=== PATIENT | male | born 1960 | race Caucasian/White ===

== ENCOUNTER → 2022-03-17 10:29 | Outpatient (CLI) | payer BC, SELFPAY ==
--- NOTE | ~2022-03-17 | XR_ITS ---
EXAMINATION: XR chest 2V Exam Date/Time: 03/17/2022 10:32 CDT HISTORY: R05.8 - Other specified cough Comparison: None available. RESULT: Lines, tubes, and devices: None. Lungs and pleura: Clear. Cardiomediastinal silhouette: Unremarkable. Other: No acute osseous or upper abdominal finding. IMPRESSION: No acute cardiopulmonary process. Reviewed, dictated and finalized at location K.
== END ==
PROVIDERS: PCP Family Medicine; Visit Provider Family Medicine
DX: R05.8 Other specified cough (principal)
CPT/HCPCS: 71046

== ENCOUNTER 2022-05-07 09:00 | Outpatient (NON) | payer BC, SELFPAY | END 2022-05-07 09:01 | disposition home or self-care (01) | LOC: ANHLAB 05-09 12:51 | PROVIDERS: PCP Family Medicine; Visit Provider Nurse Practitioner | DX: L82.1 Other seborrheic keratosis (principal) | CPT/HCPCS: 88305 ==

== ENCOUNTER → 2022-06-01 08:09 | Outpatient (CLI) | payer BC, SELFPAY ==
--- NOTE | ~2022-06-01 | CT_ITS ---
EXAMINATION: CT sinus wo con DATE: 06/01/2022 08:22 INDICATION: Sinusitis TECHNIQUE: Computed tomography (CT) of the paranasal sinuses was performed without intravenous contra st. The dose-length product was 295.05 mGy-cm. Automated exposure control and iterative reconstructio n technique were employed. COMPARISON: CT dated 06/01/2022 FINDINGS: There is minimal mucosal thickening of the maxillary sinuses inferiorly. There is rightward nasal septal deviation. Ostiomeatal units are patent.Mastoids are pneumatized. There is intracranial atherosclerosis. No midline shift. IMPRESSION: 1. Mild maxillary sinus disease. Reviewed, dictated and finalized at location A.
== END ==
PROVIDERS: PCP Family Medicine; Visit Provider Nurse Practitioner Family
DX: J32.0 Chronic maxillary sinusitis (principal)
CPT/HCPCS: 70486

== ENCOUNTER 2022-10-01 14:30 | Outpatient (CLI) | payer BC, SELFPAY ==
--- NOTE | 2022-10-01 14:43 | ECG_ITS ---
Measurements Intervals [place] Rate: 66 P: 49 WV: 160 QRS: 60 QRSD: 98 T: 40 QT: 398 QTc: 418 Interpretive Statements SINUS RHYTHM NO PREVIOUS ECG AVAILABLE FOR COMPARISON Electronically Signed On 10-02-2022 11:24:27 PROFESSOR OF BUSINESS by More Carcamo M.D.
== END 2022-10-01 14:31 | disposition home or self-care (01) ==
LOC: ANHCARD 14:33
PROVIDERS: PCP Family Medicine; Visit Provider Otolaryngology
DX: E78.2 Mixed hyperlipidemia (principal)
CPT/HCPCS: 93005

== ENCOUNTER 2022-10-09 00:35 | Day surgery (SDC) | payer BC, SELFPAY ==
[2022-09-25 09:21] VITALS: BMI 31.0
--- NOTE | 2022-09-25 09:48 | PC.NURSE ---
Report to the Outpatient Waiting Room, entrance under the green pavilion located off [facility], at time 0630 on date _10/09/22 Planned Procedure Time: 0830. Time changes happen often and if your time is changed the preop area will call you the afternoon before. - You and your visitor will be asked to self-screen and do not enter if you have any COVID symptoms. - Only one visitor is requested with a max of two and NO children visitors are allowed at this time. - The patient visitor may be requested to leave or wait in car when not with patient due to distancing restrictions. - A mask is optional within the hospital at this time. Patients may have clear liquids (water, carbonated beverages, clear teas, apple juice) until 3 hours prior to surgery with a maximum of 20 ounces. - No food from midnight until time of surgery - Infants may have breast milk until 4 hours before surgery, formula 6 hours prior to surgery. - Children will be allowed to drink immediately following surgery. If applicable, please bring a bottle or sippy cup to assist with drinking. Juice, water, soda, and popsicles are readily available. For infants on formula, please bring formula the day of surgery. Pacifiers are allowed. Take the following medications with a SIP of water the morning of surgery: allegra_ DO NOT STOP ANY OF YOUR OTHER PRESCRIPTION MEDICATIONS PRIOR TO SURGERY ?EXCEPT THE FOLLOWING Medications to discontinue per physician _multivitamin Date to take last dose_10/06/22__ Please no make-up, nail sri lankan, hairspray, perfume, deodorant, or body powder the day of surgery. No jewelry (including any body piercings) or valuables the day of surgery, leave them at home. Please take a shower or bath the night before, or the morning of, surgery with an antibacterial soap. Wear comfortable, loose fitting clothing. Children are encouraged to wear pajamas. - Jewelry must be removed prior to entering the operating room. Rings and piercings that are not removed may be cut off. - The hospital will not accept responsibility for valuables. - Please leave all valuables, including medications, at home the day of surgery. If you are going home after surgery, a licensed driver license reviewing officer must drive you home. - NO public transportation without another adult if you receive anesthesia. - We recommend that an adult stay with you for 24 hours following discharge. - We also recommend that you do not drive, make important decision, drink alcoholic beverages, or take any drugs that were not prescribed by your health care provider for at least 24 hours after your discharge time. For Pediatric surgeries, we recommend two adults accompany the child home. Follow any additional instructions given to you from your surgeon. If you or anyone in your household have experienced Covid symptoms in the past week, please notify your surgeon or the nurse liaison at the phone number below for possible testing. Telephone instructions given to Anika Lane and asked if any additional questions and then verbalized understanding. Patient advised to call surgeon office or pre surgery nurse liaison [phone] if any additional questions.
--- NOTE | 2022-10-08 17:46 | PM.IMHP ---
H&P: HPI History of Present Illness Date/Time: 10/08/22 17:46 Chief Complaint: nasal congestion nasal obstruction chronic sinusitis facial pressure postnasal drainage septal deviation turbinate hypertrophy Narrative: planned surgical procedure Review of Systems Review of Systems: All systems reviewed & are unremarkable except as noted in HPI and below PMFSH Past Medical History Medical History BMI 31.0-31.9,adult BMI 32.0-32.9,adult Closed displaced fracture of distal phalanx of left index finger Cough productive of clear sputum Deafness in right ear Dietary counseling and surveillance (05/28/19) Encounter for screening for malignant neoplasm of colon Encounter for screening for malignant neoplasm of prostate High cholesterol Mixed hyperlipidemia Screen for colon cancer Screening for prostate cancer Skin tag Unspecified open wound of left index finger with damage to nail, initial encounter Surgical History Surgical History History of removal of cyst back and forehead Family History Family History Father Family history of cardiovascular disease Mother No problems noted. Sibling No problems noted. Social History Social History Smoking status: Never smoker Second hand tobacco smoke exposure: Yes Alcohol intake: never Substance use: never Substance use type: does not use Lack of Transportation: No Lack of Food: Never True Current Housing: I Have Housing Concerned About Future Housing: No Difficulty Paying Gas/Electric Bills: No Difficulty Paying for Meds: No Currently Unemployed: No Education: Bachelor's Degree Difficulty w/ Childcare or Family Care: No Living arrangements: with family Occupation/Education: occupation Additional occupation/education comments: IT Gender identity (if verbalized by the patient): Male Spiritual care concerns: No Meds Home Medications and Allergies Home Medications Medication Instructions Recorded Confirmed Type fexofenadine 60 mg-pseudoephedrine 1 tablet PO Q12H PRN Allergy 03/16/22 09/25/22 History ER 120 mg tablet,ext.release,12 hr Symptoms (Lucy-D 12 Hour) pravastatin 40 mg tablet See Rx Instructions .Route 03/26/22 09/25/22 Rx .COMPLEX #90 tabs ipratropium bromide 21 mcg (0.03 2 spray intranasal TID #30 mL 08/15/22 09/25/22 Rx %) nasal spray Allergies Allergy/AdvReac Type Severity Reaction Status Date / Time latex Allergy Unknown Rash Verified 08/15/22 09:14 Exam Narrative: boggy mucosa septal deviation turbinate hypertrophy Assessment and Plan Assessment and plan (1) Nasal obstruction: Code(s): J34.89 - Other specified disorders of nose and nasal sinuses Status: Acute Assessment and Plan: ?Plan OR endoscopic assisted septoplasty inferior turbinate submucosal reduction with outfracture image guided endoscopic maxillary antrostomies anterior ethmoidectomies. Risks were discussed including bleeding infection damage to surrounding structures damage to any structure above the clavicle by myself damage to any structure during the induction and maintenance of anesthesia septal perforation. The biggest risk I discussed that there is a significant risk of not resolving the drainage. The patient's drainage is his biggest problem his sinuses are sinuses are mildly diseased. Patient voiced understanding and agreed. (2) Hypertrophy of both inferior nasal turbinates: Code(s): J34.3 - Hypertrophy of nasal turbinates Status: Acute (3) Nasal septal deviation: Code(s): J34.2 - Deviated nasal septum Status: Acute (4) PND (post-nasal drip): Code(s): R09.82 - Postnasal drip Status: Acu
[2022-10-09] VITALS (8 sets, daily range): BP systolic 117–130; BP diastolic 49–64; PULSE 61–81; RESP 12–20; TEMP 36–36.1; O2SAT 100; BMI 30.2
--- NOTE | 2022-10-09 07:17 | WPDHPUPDATE1 ---
History and Physical Update Update Date/Time: 10/09/22 07:17 History and Physical has been reviewed, including an updated exam of the patient. There are NO changes in the patient's condition. Risks, benefits, and alternatives have been discussed and questions answered. Patient agrees to proceed with procedure.
[2022-10-09] MEDS: LACTATED RINGERS 1,000 ML 30 ML IV CONT ×3 (07:45→11:09)
[2022-10-09] MEDS: ACETAMINOPHEN 500 MG TABLET 1000 MG PO (07:51)
--- NOTE | 2022-10-09 08:16 | WPDANESEPPF ---
Anes - Initial Pre Proc Eval Procedure: Operation Date: 10/09/22 09:15 Proposed Procedures p Image Guided Bilateral Inferior Turbinectomy with Outfracture, Bilateral Anterior Ethmoidectomy, Bilateral Maxillary Antrostomy without Tissue Removal - Nathan Britton MD s Endoscopic Septoplasty - Nathan Britton MD Date/Time: 10/09/22 08:16 Surgeon: Nathan Britton MD Pre Op Diagnosis: Chronic Sinusitis Patient Data Age: 62 Gender: M Height: 1.8 m Weight: 98.2 kg Last Vital Signs Temp 36.0 C L 10/09/22 07:20 Pulse 61 10/09/22 07:20 Resp 18 10/09/22 07:20 BP 117/64 10/09/22 07:20 Pulse Ox 100 10/09/22 07:20 O2 Del Method Room Air 10/09/22 07:20 Allergies Allergy/AdvReac Type Severity Reaction Status Date / Time latex Allergy Mild Rash Verified 10/09/22 07:36 Home Medications Medication Instructions Recorded Confirmed Type fexofenadine 60 mg-pseudoephedrine 1 tablet PO Q12H PRN Allergy 03/16/22 10/09/22 History ER 120 mg tablet,ext.release,12 hr Symptoms (Lucy-D 12 Hour) pravastatin 40 mg tablet See Rx Instructions .Route 03/26/22 09/25/22 Rx .COMPLEX #90 tabs ipratropium bromide 21 mcg (0.03 2 spray intranasal TID #30 mL 08/15/22 09/25/22 Rx %) nasal spray Patient hx anesthesia problems: none Family hx anesthesia problems: none Results Review: All pre-operative results and documents have been reviewed as part of the pre-operative evaluation. [facility] Past Medical History Medical History BMI 31.0-31.9,adult BMI 32.0-32.9,adult Closed displaced fracture of distal phalanx of left index finger Cough productive of clear sputum Deafness in right ear Dietary counseling and surveillance (05/28/19) Encounter for screening for malignant neoplasm of colon Encounter for screening for malignant neoplasm of prostate High cholesterol Mixed hyperlipidemia Screen for colon cancer Screening for prostate cancer Skin tag Unspecified open wound of left index finger with damage to nail, initial encounter Surgical History Surgical History History of removal of cyst back and forehead Family History Family History Father Family history of cardiovascular disease Mother No problems noted. Sibling No problems noted. Social History Social History Smoking status: Never smoker Second hand tobacco smoke exposure: Yes Alcohol intake: never Substance use: never Substance use type: does not use Lack of Transportation: No Lack of Food: Never True Current Housing: I Have Housing Concerned About Future Housing: No Difficulty Paying Gas/Electric Bills: No Difficulty Paying for Meds: No Currently Unemployed: No Education: Bachelor's Degree Difficulty w/ Childcare or Family Care: No Living arrangements: with family Occupation/Education: occupation Additional occupation/education comments: IT Gender identity (if verbalized by the patient): Male Spiritual care concerns: No Anes - Eval Final PreProcedure Day of Procedure 10/09/22 08:16 Patient weight: obese Heart: regular rate and rhythm Lungs: clear to auscultation Airway: Mallampati scale class II Neurological: alert and oriented Last oral intake: >/= 8 hours ASA classification: II Emergent: no Anesthetic plan: proceed Anesthesia type and monitoring: general ETT and standard monitoring Results Review: All pre-operative results and documents have been reviewed as part of the pre-operative evaluation. Informed Consent: The patient's anesthetic plan and its attendant risks and benefits were discussed with the patient/family/POA. Questions were solicited and answers provided to the satisfaction of the patient/family/POA.
[2022-10-09] MEDS: LIDO 2%/EPINEPHRINE 1:100,000 50 ML VIAL INFILTRATE (08:43)
[2022-10-09] MEDS: OXYMETAZOLINE HCL 0.05% NAS 15 ML BTL (*BKC) 1 SPRAY NASAL (08:44)
[2022-10-09] MEDS: ceFAZolin 2 GM/D5W 50 ML 2 GM/50 ML BAG IVPB (08:44)
--- NOTE | 2022-10-09 11:18 | W.PM.PROC2 ---
Procedure Note - Detailed Date of Procedure 10/09/22 Pre-op Diagnosis Chronic SinusitisNasal obstruction nasal congestion postnasal drainage septal deviation turbinate hypertrophy Post-op Diagnosis Same Procedure Performed endoscopic assisted septoplasty turbinate reduction inferior submucosally with outfracture bilateral image guided endoscopic maxillary antrostomies without tissue removal and anterior ethmoidectomies Surgeon Nathan Britton MD Anesthesia General Indications see above Findings severely deviated right septum corrected nicely no perforations on the left turbinate hypertrophy well reduced. The left anterior ethmoids had significant amount of diseased air cells. Left max mildly diseased the right-side had very mild edema disease. No complications blood loss 25-50 cc Description of Procedure patient identified consider a fight in preop. Patient brought to the operating room. Time-out performed. Image guidance initiated. General anesthesia induced endotracheal tube secured. Patient prepped draped positioned 2nd time-out performed. Image guidance confirmed it set up. Afrin-soaked pledgets placed allowed to sit for 5 minutes the bilateral nasal passages. They were then removed 0 degree endoscope utilized septum injected with 10 cc 1% 2% lidocaine 1 100,000 parts epinephrine bilateral sub mucosal plane. [place] incision made left-sided 15 blade left nasal septal flap elevated with 7 Macedonian suction. Osteotome utilized to cross over D blade as well as osteotome utilized to connect the cuts in the cartilaginous septum. Right nasal septal flap elevated with 7 Macedonian suction small tears. Deviated septum removed combination Emmanuel Church forceps osteotome Zina forceps. Septum then closed with 3 interrupted 5 0 fast gut sutures. Turbinates reduced submucosal plane after being injected with 1 cc each of the same injectable. Microdebrider with turbinate blade utilized were then outfractured with [place] elevator image guidance utilized after the middle turbinates were medialized to perform Astelin antrostomies as well as backbiter double ball tip probe straight through cut and microdebrider image guided. Image guidance was then utilized to confirm the location of the anterior ethmoid air cells. There opened with [place] and microdebrider as well straight through cut. Bleeding was minimal no violation of the anterior ethmoidal arteries. Bilateral nasal passages suction to the choana no pack placed a small amount stenting the middle turbinates medial. Doherty splints carbon fashion the appropriate fashion covered mupirocin placed bilaterally and sutured anteriorly using a 3-0 mattressed nylon suture. Blood loss 25-50 cc. I performed all dictated portions of the procedure. No complications. Patient taken to PACU. Estimated Blood Loss 25 Drains No Packing Yes (Jos) Pathology None sent Complications No immediate complications Condition Stable Disposition PACU [facility] Billing Surgery - Charge Forward: Surgery Billing
--- NOTE | 2022-10-09 11:52 | SUR.PHASEI ---
1140 PT STATES HE FEELS LIKE HE CAN'T SWALLOW, COUGHING OCCASIONALLY, PT WAS ABLE TO SWALLOW A DRINK OF WATER. 1145 DR ALBARRAN CONTACTED.
[2022-10-09] MEDS: IBUPROFEN 600 MG TABLET PO (13:27)
== END 2022-10-09 13:45 | disposition home or self-care (01) ==
PROVIDERS: PCP Family Medicine; Visit Provider Otolaryngology
PROC: (CPT 31254; principal; 2022-10-09 09:15)
PROC: (CPT 30520; 2022-10-09 09:15)
DX: J32.9 Chronic sinusitis, unspecified (principal); J34.3 Hypertrophy of nasal turbinates; R09.82 Postnasal drip; J34.2 Deviated nasal septum; J34.89 Other specified disorders of nose and nasal sinuses; E78.00 Pure hypercholesterolemia, unspecified; E66.9 Obesity, unspecified; Z68.30 Body mass index [BMI] 30.0-30.9, adult
CPT/HCPCS: 31254; 31267; 30140; 30520; 61782; A9270; J0330; J0690; J1100; J2250; J2405; J2704; J3010; J7120

== ENCOUNTER 2023-05-27 07:00 | Outpatient (NON) | payer BC, SELFPAY | END 2023-05-27 07:01 | disposition home or self-care (01) | LOC: ANHLAB 05-29 13:22 | PROVIDERS: PCP Family Medicine; Visit Provider Nurse Practitioner | DX: D48.5 Neoplasm of uncertain behavior of skin (principal); D36.12 Benign neoplasm of peripheral nerves and autonomic nervous system, upper limb, including shoulder; D18.03 Hemangioma of intra-abdominal structures | CPT/HCPCS: 88305 ==

== ENCOUNTER 2023-08-13 09:34 | Outpatient (CLI) | payer BC, SELFPAY ==
--- NOTE | ~2023-08-13 | XR_ITS ---
EXAMINATION: XR chest 2V 08/13/2023 09:57 INDICATION: Cough and wheezing. Congestion. PROCEDURE: 2 view chest COMPARISON: 03/17/2022 FINDINGS: The lungs are clear. The cardiomediastinal silhouette is within normal limits. There are no pleural effusions. There is no pneumothorax suspected. IMPRESSION: 1: NO ACUTE CARDIOPULMONARY DISEASE. Reviewed, dictated and finalized at location L. SCORER
== END 2023-08-13 09:35 | disposition home or self-care (01) ==
PROVIDERS: PCP Family Medicine; Visit Provider Physician Assistant
DX: R06.2 Wheezing (principal); R05.9 Cough, unspecified
CPT/HCPCS: 71046

== ENCOUNTER 2023-09-16 00:55 | Day surgery (SDC) | payer BC, SELFPAY ==
[2023-08-26 12:31] VITALS: BMI 30.7
--- NOTE | 2023-09-13 10:15 | SUR.PREOP ---
Patient called regarding upcoming procedure. Pt updated on arrival date and time. All questions answered
[2023-09-16 10:25] VITALS: BP 130/66; PULSE 79; RESP 19; TEMP 36.5; O2SAT 99; BMI 30.4
[2023-09-16] MEDS: LACTATED RINGERS 1,000 ML 150 ML IV CONT (10:41)
--- NOTE | 2023-09-16 10:51 | WPDANESEPPF ---
Anes - Initial Pre Proc Eval Procedure: Operation Date: 09/16/23 12:30 Proposed Procedures p Screening Colonoscopy - Jordi Maldonado MD Date/Time: 09/16/23 10:51 Surgeon: Jordi Maldonado MD Pre Op Diagnosis: neoplasm screening Patient Data Age: 63 Gender: M Height: 1.8 m Weight: 99.2 kg Last Vital Signs Temp 97.7 F 09/16/23 10:25 Pulse 79 09/16/23 10:25 Resp 19 09/16/23 10:25 BP 130/66 09/16/23 10:25 Pulse Ox 99 09/16/23 10:25 O2 Del Method Room Air 09/16/23 10:25 Allergies Allergy/AdvReac Type Severity Reaction Status Date / Time latex Allergy Mild Rash Verified 09/16/23 10:30 Home Medications Medication Instructions Recorded Confirmed Type fexofenadine 60 mg-pseudoephedrine 1 tablet PO Q12H PRN Allergy 06/18/23 09/16/23 History ER 120 mg tablet,ext.release,12 hr Symptoms (Lucy-D 12 Hour) rosuvastatin 20 mg tablet 20 mg PO DAILY #90 tabs 08/06/23 09/16/23 Rx Patient hx anesthesia problems: none Family hx anesthesia problems: none Results Review: All pre-operative results and documents have been reviewed as part of the pre-operative evaluation. [facility] Past Medical History Medical History BMI 31.0-31.9,adult BMI 32.0-32.9,adult Closed displaced fracture of distal phalanx of left index finger Cough productive of clear sputum Deafness in right ear Dietary counseling and surveillance (05/28/19) Encounter for screening for malignant neoplasm of colon Encounter for screening for malignant neoplasm of prostate High cholesterol Mixed hyperlipidemia Screen for colon cancer Screening for prostate cancer Skin tag Unspecified open wound of left index finger with damage to nail, initial encounter Surgical History Surgical History H/O sinus surgery History of removal of cyst back and forehead Family History Family History Father Family history of cardiovascular disease Tobacco abuse Sibling No problems noted. Mother Skin cancer Tobacco abuse Social History Social History Smoking status: Never smoker Second hand tobacco smoke exposure: Yes Alcohol intake: never Alcohol use details: Rarely Substance use: never Substance use type: does not use Lack of Transportation: No Lack of Food: Never True Current Housing: I Have Housing Concerned About Future Housing: No Difficulty Paying Gas/Electric Bills: No Difficulty Paying for Meds: No Currently Unemployed: No Education: Bachelor's Degree Difficulty w/ Childcare or Family Care: No Living arrangements: other Additional living arrangements comments: with sp Occupation/Education: occupation Additional occupation/education comments: IT Gender identity (if verbalized by the patient): Male Spiritual care concerns: No Anes - Eval Final PreProcedure Day of Procedure 09/16/23 10:51 Patient weight: obese Heart: regular rate and rhythm Lungs: clear to auscultation Airway: Mallampati scale class II Neurological: alert and oriented Last oral intake: >/= 8 hours ASA classification: II Emergent: no Anesthetic plan: proceed Anesthesia type and monitoring: general GIVS and standard monitoring Results Review: All pre-operative results and documents have been reviewed as part of the pre-operative evaluation. Informed Consent: The patient's anesthetic plan and its attendant risks and benefits were discussed with the patient/family/POA. Questions were solicited and answers provided to the satisfaction of the patient/family/POA.
--- NOTE | 2023-09-16 11:04 | PM.HPGS ---
History of Present Illness History of Present Illness Consent: Risks, benefits, and alternatives have been discussed and questions answered. Patient agrees to proceed with procedure. Chief complaint: neoplasm screening Narrative: Bin Lane is a 63 year old male here for first screening colonoscopy Review of Systems Constitutional: Constitutional: Denies headache(s) and Denies weakness Eyes: Eyes: Denies blurry vision ENT: Reports Normal hearing present, Denies headache(s) and Denies neck pain Cardiovascular: Cardiovascular: Denies chest pain and Denies dyspnea Respiratory: Respiratory: Denies dyspnea Gastrointestinal: Gastrointestinal: Reports no additional gastrointestinal complaints Genitourinary: Genitourinary: Denies dysuria Musculoskeletal: Musculoskeletal: Denies neck pain Integumentary/Breasts: Skin/Breast: Denies dry skin Neurologic: Reports Normal hearing present, Denies headache(s) and Denies weakness Psychiatric: Psychiatric: Denies anxiety Endocrine: Endocrine: Denies change in body appearance Hematologic/Lymphatic: Hematologic/Lymphatic: Denies easy bleeding Allergic/Immunologic: Allergic/Immunologic: Denies urticaria PMFSH Past Medical History Medical History BMI 31.0-31.9,adult BMI 32.0-32.9,adult Closed displaced fracture of distal phalanx of left index finger Cough productive of clear sputum Deafness in right ear Dietary counseling and surveillance (05/28/19) Encounter for screening for malignant neoplasm of colon Encounter for screening for malignant neoplasm of prostate High cholesterol Mixed hyperlipidemia Screen for colon cancer Screening for prostate cancer Skin tag Unspecified open wound of left index finger with damage to nail, initial encounter Surgical History Surgical History H/O sinus surgery History of removal of cyst back and forehead Family History Family History Father Family history of cardiovascular disease Tobacco abuse Sibling No problems noted. Mother Skin cancer Tobacco abuse Social History Social History Smoking status: Never smoker Second hand tobacco smoke exposure: Yes Alcohol intake: never Alcohol use details: Rarely Substance use: never Substance use type: does not use Lack of Transportation: No Lack of Food: Never True Current Housing: I Have Housing Concerned About Future Housing: No Difficulty Paying Gas/Electric Bills: No Difficulty Paying for Meds: No Currently Unemployed: No Education: Bachelor's Degree Difficulty w/ Childcare or Family Care: No Living arrangements: other Additional living arrangements comments: with sp Occupation/Education: occupation Additional occupation/education comments: IT Gender identity (if verbalized by the patient): Male Spiritual care concerns: No Meds Home Medications and Allergies Home Medications Medication Instructions Recorded Confirmed Type fexofenadine 60 mg-pseudoephedrine 1 tablet PO Q12H PRN Allergy 06/18/23 09/16/23 History ER 120 mg tablet,ext.release,12 hr Symptoms (Lucy-D 12 Hour) rosuvastatin 20 mg tablet 20 mg PO DAILY #90 tabs 08/06/23 09/16/23 Rx Allergies Allergy/AdvReac Type Severity Reaction Status Date / Time latex Allergy Mild Rash Verified 09/16/23 10:30 Vital Signs Vital Signs - 24 hr 09/16/23 10:25 Temperature 97.7 F Pulse Rate 79 Respiratory Rate 19 Blood Pressure 130/66 Pulse Oximetry 99 Oxygen Delivery Room Air Exam Const: General: comfortable and no acute distress HENMT: Face/Nose/Sinus: Normal nares present Eyes: General: appearance normal, both eyes and all related structures Neck: Neck: no JVD Resp: Ausc
[2023-09-16 11:23] VITALS: BP 122/65; PULSE 65; RESP 16; O2SAT 96
[2023-09-16 11:33] VITALS: BP 115/67; PULSE 70; RESP 18; O2SAT 97
[2023-09-16 11:43] VITALS: BP 113/66; PULSE 64; RESP 18; O2SAT 97
== END 2023-09-16 11:48 | disposition home or self-care (01) ==
PROVIDERS: PCP Family Medicine; Visit Provider Internal Medicine Gastroenterology
PROC: 0DJD8ZZ Inspection of Lower Intestinal Tract, Via Natural or Artificial Opening Endoscopic (ICD-10-PCS; CPT 45378; principal; 2023-09-16 12:30)
DX: Z12.11 Encounter for screening for malignant neoplasm of colon (principal); K64.8 Other hemorrhoids; K57.30 Diverticulosis of large intestine without perforation or abscess without bleeding; E78.2 Mixed hyperlipidemia; E66.9 Obesity, unspecified; Z68.30 Body mass index [BMI] 30.0-30.9, adult; Z98.890 Other specified postprocedural states; Z82.49 Family history of ischemic heart disease and other diseases of the circulatory system; Z84.0 Family history of diseases of the skin and subcutaneous tissue
CPT/HCPCS: 45378; J2704; J7120

== ENCOUNTER 2023-11-13 12:41 | Outpatient (CLI) | payer BC, SELFPAY ==
--- NOTE | ~2023-11-13 | CT_ITS ---
EXAMINATION: CT pelvis wo con DATE: 11/13/2023 13:00 INDICATION: Left buttock/perirenal mass. TECHNIQUE: High resolution computed tomography (CT) of the pelvis was performed without intravenous c ontrast. Additional sagittal and coronal reconstructions were performed. Automated exposure control a nd iterative reconstruction technique were employed. The dose-length product was 683.57 mGy-cm. COMPARISON: None FINDINGS: There are few diverticula along the sigmoid colon without adjacent comparison to suggest diverticulit is. Normal appendix. Bladder and prostate are unremarkable. No free fluid in the pelvis. No pathologi krystyna enlarged pelvic or inguinal lymphadenopathy. There is a 10.3 x 6.2 x 3.7 cm lesion of greater t savage simple fluid attenuation along the left side of the inferior gluteal cleft which abuts the left p osterior margin of the anus which remains superficial to the levator ani musculature. There is no sig nificant surrounding inflammatory stranding IMPRESSION: 1. Indeterminate 10.3 x 6.2 x 3.7 cm subcutaneous lesion at the left side of the inferior lingula wes ft which could be either solid neoplasm or complex cystic. Could consider ultrasound-guided biopsy/as piration for further evaluation. Reviewed, dictated and finalized at location A. IMPRESSION: 1. Indeterminate 10.3 x 6.2 x 3.7 cm subcutaneous lesion at the left side of th e inferior lingula cleft which could be either solid neoplasm or complex cystic . Could consider ultrasound-guided biopsy/aspiration for further evaluation.
== END 2023-11-13 12:42 ==
LOC: MICIMG 12:42
PROVIDERS: PCP Family Medicine; Visit Provider Surgery
DX: R22.2 Localized swelling, mass and lump, trunk (principal)
CPT/HCPCS: 72192

== ENCOUNTER 2023-11-22 09:51 | Outpatient (CLI) | payer BC, SELFPAY ==
--- NOTE | ~2023-11-22 | US_ITS ---
EXAMINATION: US biopsy st pelvis DATE: 11/22/2023 11:20 INDICATION: Left buttock mass TECHNIQUE: The procedure including the risks and benefits was discussed with the patient. Risks discu ssed included bleeding and infection. The patient understood the risks and agreed to proceed. The sk in overlying the mass at the left buttock along the inferior aspect of the left side of the gluteal c left was prepped and draped in usual sterile fashion. Anesthetic was administered with 1% lidocaine subcutaneously. An 18 gauge core biopsy needle was advanced under continuous ultrasound observation to the lesion of interest. 2 core biopsy specimens were obtained but which yielded minimal fragmente d tissue. An additional 4 core needle biopsies were obtained with a 14-gauge core biopsy needle which was also advanced under continuous ultrasound observation into the lesion of interest. The needle w as removed and the entry site was cleaned and dressed. Post procedure ultrasound demonstrated no hem orrhage. FINDINGS: Ultrasound images of the region of concern demonstrate a 6.8 x 6.4 x 6.2 cm mass with inter nal vascular flow on color Doppler. Subsequent images demonstrate the biopsy needle advanced into the mass. IMPRESSION: 1. Successful Ultrasound-guided biopsy of a 6.8 cm hypoechoic left buttock mass at the left inferior aspect of the gluteal cleft. Reviewed, dictated and finalized at location A.
== END 2023-11-22 09:52 | disposition home or self-care (01) ==
LOC: ANHIMG 09:52
PROVIDERS: PCP Family Medicine; Visit Provider Surgery
DX: R22.2 Localized swelling, mass and lump, trunk (principal)
CPT/HCPCS: 20206; 76942; 88305